=== PATIENT | female | born 1990 | race Two or more races ===

== ENCOUNTER 2018-07-24 12:41 | Outpatient (CLI) | payer MEDICAID ==
[~2018-07-24] VITALS: Ht 160 cm; Wt 82.4 kg
[2018-07-24 13:00] VITALS: Ht 160 cm; Wt 82.4 kg
[2018-07-24 13:01] VITALS: BP 112/55; PULSE 71; RESP 17
[2018-07-24] MEDS ORDERED: ACETAMINOPHEN 500 MG TAB PO STA (13:13)
--- NOTE | 2018-07-24 16:03 | TRIAGE ---
OB Triage Datetime Report Generated by CPN: 07/24/2018 16:03 Datetime: 07/24/2018 15:26 Labor Evaluation Frequency: x1 Monitor Mode: External Duration (sec)2399: 40 Quality: Mild Pattern: Normal: <= 5 Contractions in 10 Minutes Resting Tone [place]: Relaxed Heart Rate FHR Baseline Rate: 135 Monitor Mode: External US Variability: Moderate 6-25 bpm Accelerations: 15X15 Decelerations: None Category: Category I Datetime: 07/24/2018 14:59 Labor Evaluation Frequency: 20-40 Pattern: Normal: <= 5 Contractions in 10 Minutes Resting Tone [place]: Relaxed Contraction Comments: irritability Heart Rate FHR Baseline Rate: 145 Monitor Mode: External US Variability: Moderate 6-25 bpm Accelerations: 15X15 Decelerations: None Category: Category I Datetime: 07/24/2018 14:06 Assessment Type: Triage Maternal Assessment Level of Consciousness: Fully Conscious DTR's/Clonus: DTRs 2+; No Clonus Headache: Denies Blurred Vision: No Respiratory Effort: Unlabored; Regular Rhythm; Equal Expansion Breath Sounds, Left: Clear and Equal Breath Sounds, Right: Clear and Equal Nausea/Vomiting: Denies RUQ Epigastric Pain: Denies Lower Extremities Edema: None Degree: None Upper Extremities Edema: None Degree: None Facial Edema: None Fall Risk Assessment History of Falling: (0) No Secondary Diagnosis: (0) No Ambulatory Aid: (0) Bedrest/Nurse Assist IV Therapy: (0) No Gait: (0) Normal/Bedrest/Immobile Mental Status: (0) Oriented to Own Ability Fall Score: 0 Fall Risk Score Definition: No Risk: No action required Datetime: 07/24/2018 13:39 Labor Evaluation Frequency: x1 Duration (sec)2399: 60 Pattern: Normal: <= 5 Contractions in 10 Minutes Resting Tone [place]: Relaxed Contraction Comments: no uc Heart Rate FHR Baseline Rate: 135 Monitor Mode: External US Variability: Moderate 6-25 bpm Accelerations: 15X15 Decelerations: None Category: Category I Datetime: 07/24/2018 13:02 Time of Arrival: 07/24/2018 12:39 EGA: 26.6 Arrived By: Ambulatory Arrived From: Home Chief Complaint: pt came to ob triage c/o abdominal pain when walking, pain located one spot above umbilica, one spot middle lower abdominal, pain level 4/10, no pain when lying down, deny uc, deny va g. bleeding, deny srom Contractions: Denies/Absent Rupture of Membranes: Denies Vaginal Bleeding: None Vaginal Discharge: Denies Recent Sexual Intercouse: Denies Abdominal Trauma: Not Applicable Patient Complaints: Other Time Provider Notified: 07/24/2018 13:03 Provider Notified: diane Initial Plan: r/o ptl
--- NOTE | 2018-07-24 17:54 | PN ---
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 She denies any urinary symptoms. She denies any leaking of fluid, vaginal bleeding decreased movement or any other complaints. Patient denies any fever or chills. Objective Vital Signs Date Temp Pulse Resp B/P (MAP) Pulse Ox O2 O2 Flow FiO2 Time Delivery Rate 07/24/18 98.8 71 17 112/55 13:01 (74) Heart Rate: 130's Heart Rate Comments heart tracing appropriate for gestational age No contraction on the monitor noted Contractions: None Exam General appearance: Alert and oriented x4 does not appear to be in any acute distress Abdomen: Soft, no tenderness, no tenderness departments, no guarding, no rigidity, gravid, fundal height consider date testing reassuring NST consistent with gestational age UA negative Results/Medications Results 24 hrs Laboratory Tests Test 07/24/18 13:35 Urine Color YELLOW Urine Clarity SLIGHTLY CLOUDY A Urine pH 6.0 Urine Specific [place] 1.014 Urine Ketones TRACE A Urine Nitrite NEGATIVE Urine Bilirubin NEGATIVE Urine Urobilinogen NEGATIVE Urine Leukocyte Esterase NEGATIVE Urine Microscopic RBC 1 Urine Microscopic WBC 2 Urine Squamous Epithelial Cells FEW Urine Mucus FEW A Urine Hemoglobin NEGATIVE Urine Glucose NEGATIVE Urine Total Protein NEGATIVE Disposition: Discharge Assessment/Plan IUP at 26 weeks and 6 days Abdominal pain above the umbilicus in the lower abdomen Likely musculoskeletal. No evidence of acute abdomen Abdomen soft and nontender Symptoms resolved after received Tylenol No evidence of labor Patient advised to rest and avoid bending. Adequate hydration discussed. Strict labor precautions discussed with patient she was advised advised the patient to return to the clinic if the symptoms return or getting worse or she has any leaking of fluid, vaginal bleeding decreased movement or uterine contractions or for any other concerns She was advised also to have a follow-up in 48 hours with her primary OB office SUSANA CRUZ MD Jul 24, 2018 17:54
== END 2018-07-24 15:45 | disposition home or self-care (01) ==
LOC: L-D 12:41 → OBT 12:41
PROVIDERS: ATTEND Obstetrics & Gynecology
DX: O26.892 Other specified pregnancy related conditions, second trimester (principal); R10.2 Pelvic and perineal pain; Z3A.26 26 weeks gestation of pregnancy
CPT/HCPCS: 81001; Z7500; Z7610; 81003; G0463

== ENCOUNTER 2018-09-18 18:55 | Outpatient (CLI) | payer MEDICAID ==
[~2018-09-18] VITALS: Ht 160 cm; Wt 87.7 kg
[2018-09-18 19:26] VITALS: Ht 160 cm; Wt 87.7 kg
[2018-09-18 19:27] VITALS: BP 125/71; PULSE 71; RESP 17
[2018-09-18] MEDS ORDERED: PREN-93 PO (19:38)
--- NOTE | 2018-09-18 21:25 | TRIAGE ---
OB Triage Datetime Report Generated by CPN: 09/18/2018 21:25 Datetime: 09/18/2018 20:33 Labor Evaluation Frequency: X0 Monitor Mode: External Duration (sec)2399: X0 Pattern: Normal: <= 5 Contractions in 10 Minutes Resting Tone [place]: Relaxed Heart Rate FHR Baseline Rate: 130 Monitor Mode: External US Variability: Moderate 6-25 bpm Accelerations: 15X15 Decelerations: None Category: Category II Datetime: 09/18/2018 19:50 Stage of : OB Triage Time of Arrival: 09/18/2018 18:53 EGA: 34.3 Arrived By: Wheelchair Arrived From: Home Chief Complaint: PELVIC PAIN SINCE SATURDAY AND LEFT GROIN PAIN Movement: Present Contractions: Occasional Contractions: 2X 30 MINS Rupture of Membranes: Denies Vaginal Bleeding: None Vaginal Discharge: Denies Recent Sexual Intercouse: Denies Abdominal Trauma: Not Applicable Patient Complaints: Other Time Provider Notified: 09/18/2018 19:50 Provider Notified: DR. YOU Initial Plan: EFM, CALL OB Labor Evaluation Frequency: X2 Monitor Mode: External Duration (sec)2399: 60-80 Quality: Mild Pattern: Normal: <= 5 Contractions in 10 Minutes Resting Tone [place]: Relaxed Heart Rate FHR Baseline Rate: 130 Monitor Mode: External US Variability: Moderate 6-25 bpm Accelerations: 15X15 Decelerations: None Category: Category I Datetime: 09/18/2018 19:40 Stage of : OB Triage Maternal Assessment Level of Consciousness: Fully Conscious DTR's/Clonus: DTRs 2+; No Clonus Headache: Denies Blurred Vision: No Respiratory Effort: Unlabored; Regular Rhythm; Equal Expansion Breath Sounds, Left: Clear and Equal Breath Sounds, Right: Clear and Equal Nausea/Vomiting: Denies RUQ Epigastric Pain: Denies Lower Extremities Edema: None Degree: None Upper Extremities Edema: None Degree: None Facial Edema: None Temperature Route: Oral Fall Risk Assessment History of Falling: (0) No Secondary Diagnosis: (0) No Ambulatory Aid: (0) Bedrest/Nurse Assist IV Therapy: (0) No Gait: (0) Normal/Bedrest/Immobile Mental Status: (0) Oriented to Own Ability Fall Score: 0 Fall Risk Score Definition: No Risk: No action required Pain Assessment Pain Scale: 3 Pain Presence: Constant Pain Type: Pressure Pain Location: Abdomen; Left Groin Pain Relief Measures: Comfort Measures Pain Assessment Comments: PT REPORTED 8/10 PELVIC PAIN AND LEFT GROIN PAIN WHEN WALKING. 3/10 PAIN LEVEL WHEN LYING DOWN/RESTING Datetime: 07/24/2018 14:06 Fall Score: 0 Fall Risk Score Definition: No Risk: No action required Datetime: 07/24/2018 13:02 EGA: 26.3
--- NOTE | 2018-09-18 21:31 | PN ---
Triage Information Date/Time 09/18/1801/29/2122 Reason for visit: left groin pain [id number] Weeks of Gestation 34w3d /Para A1 Diabetes: none Hypertention: none Additional information hx of preecclampsia wit first pain aggrevated with activities much alleviated by resting Objective Vital Signs Date Temp Pulse Resp B/P (MAP) Pulse Ox O2 O2 Flow FiO2 Time Delivery Rate 09/18/18 97.9 71 17 125/71 Room Air 19:27 (89) Heart Rate: 130's Heart Rate Comments CAT I tracing Contractions: >10 Minutes Apart Results/Medications Results 24 hrs Laboratory Tests Test 09/18/18 19:20 Urine Color YELLOW Urine Clarity SLIGHTLY CLOUDY A Urine pH 6.0 Urine Specific [place] 1.017 Urine Ketones 1+ H Urine Nitrite NEGATIVE Urine Bilirubin NEGATIVE Urine Urobilinogen NEGATIVE Urine Leukocyte Esterase TRACE A Urine Microscopic RBC 0 Urine Microscopic WBC 3 Urine Squamous Epithelial Cells FEW Urine Bacteria FEW A Urine Mucus FEW A Urine Hemoglobin NEGATIVE Urine Glucose NEGATIVE Urine Total Protein NEGATIVE Imaging Results BPP 12/18 CHANCE 12.7 EFW 2583gm 64% Vertex Disposition: Discharge Assessment/Plan IUP 34w3d ligament pain Plan discharge home with rec to rest bhavin with her OB on saturday ALEXANDRO YOU MD September 18, 2018 21:31
== END 2018-09-18 20:51 | disposition home or self-care (01) ==
LOC: OBT 18:55 → L-D 18:56 → OBT 20:51
PROVIDERS: ATTEND Obstetrics & Gynecology
DX: O26.893 Other specified pregnancy related conditions, third trimester (principal); R10.2 Pelvic and perineal pain; O09.293 Supervision of pregnancy with other poor reproductive or obstetric history, third trimester; Z3A.34 34 weeks gestation of pregnancy
CPT/HCPCS: 76815; 76818; 81001; 87086; Z7500; Z7610; G0463